=== PATIENT | male | born 1955 | race Caucasian/White ===

== ENCOUNTER 2019-11-19 09:54 | Emergency (ER) | payer BC ==
--- NOTE | 2019-11-19 12:51 | EDM.PDOC ---
ED HPI GENERAL MEDICAL PROBLEM - General Chief Complaint: Neurological Problem Stated Complaint: DIZZY, LIGHT HEADED Time Seen by Provider: 11/19/19 10:30 Source of Information: Reports: Patient, RN Notes Reviewed - History of Present Illness INITIAL COMMENTS - FREE TEXT/NARRATIVE: 64 year old male comes in after prolonged spell of severe lightheadedness yesterday about 24 hrs ago. He had been lying down working on a truck in a shop , when he did stand up he became severely lightheaded, felt like he was about to pass out. He states he was nauseated, diaphoretic, took him about an hr to recover, no chest pain or palpitations. Hx htn, on multiple meds for many yrs. Had a repeat epsiode this morning that was less severe. Did feel some palpitations with that. Now back to normal. - Related Data Allergies Allergy/AdvReac Type Severity Reaction Status Date / Time tamsulosin [From Flomax] Allergy Itching Verified 11/19/19 10:15 Home Meds: Home Meds Enalapril [Vasotec] 20 mg PO DAILY 11/19/19 [History] amLODIPine [Norvasc] 5 mg PO DAILY 11/19/19 [History] hydroCHLOROthiazide [Hydrochlorothiazide] 25 mg PO DAILY 11/19/19 [History] Past Medical History HEENT History: Reports: Impaired Vision Cardiovascular History: Reports: Hypertension Respiratory History: Reports: None Gastrointestinal History: Reports: Diverticulosis Genitourinary History: Reports: Renal Calculus Musculoskeletal History: Reports: None Neurological History: Reports: None Psychiatric History: Reports: None Endocrine/Metabolic History: Reports: None Hematologic History: Reports: None Immunologic History: Reports: None Oncologic (Cancer) History: Reports: None Dermatologic History: Reports: None - Infectious Disease History Infectious Disease History: Reports: None - Past Surgical History GI Surgical History: Reports: Other (See Below) Other GI Surgeries/Procedures: Pt had part of his intestine removed due to diverticulitis. Male Surgical History: Reports: Lithotripsy ([facility]), Renal Calculus Social & Family History - Tobacco Use Smoking Status *Q: Current Every Day Smoker Years of Tobacco use: 45 Packs/Tins Daily: 1 - Caffeine Use Caffeine Use: Reports: Coffee - Recreational Drug Use Recreational Drug Use: No ED ROS GENERAL - Review of Systems Review Of Systems: See Below Constitutional: Denies: Fever, Chills, Diaphoresis HEENT: Reports: No Symptoms Respiratory: Denies: Shortness of Breath, Pleuritic Chest Pain, Cough Cardiovascular: Reports: Palpitations. Denies: Chest Pain GI/Abdominal: Reports: Nausea. Denies: Abdominal Pain, Vomiting Musculoskeletal: Denies: Neck Pain, Shoulder Pain, Arm Pain Skin: Reports: No Symptoms Neurological: Denies: Numbness, Tingling, Trouble Speaking, Weakness ED EXAM, NEURO - Physical Exam Exam: See Below General Appearance: Alert, No Apparent Distress Eye Exam: Bilateral Eye: PERRL Throat/Mouth: Normal Inspection Head Exam: Atraumatic Neck: Supple Respiratory/Chest: No Respiratory Distress, Lungs Clear, Normal Breath Sounds Cardiovascular: Regular Rate, Rhythm GI/Abdominal: Soft, Non-Tender Neurological: Alert, No Motor/Sensory Deficits, Oriented x 3 Extremities: Normal Inspection, Normal Range of Motion Skin Exam: Warm, Dry, Normal Color EKG INTERPRETATION EKG Date: 11/19/19 Rhythm: NSR [place]: Normal P-Wave: Present QRS: Normal ST-T: Normal Course - Vital Signs Last Recorded V/S: Last Vital Signs Temp 98.3 F 11/19/19 10:09 Pulse 82 11/19/19 10:09 Resp 16 11/19/19 10:09 BP 155/82 H 11/19/19 10:09 Pulse Ox 97 11/19/19 10:09 - Orders/Labs/Meds Orders: Active Orders 24 hr Category Date Time Status EKG 12 Lead [EKG Documentation Completion] [RC] STAT Care 11/19/19 10:50 Active Holter Monitor 48 Hours [RC] .PRN Care 11/19/19 12:48 Active Labs: Laboratory Tests 11/19/19 11/19/19 Range/Units 11:02 11:02 WBC 6.51 (4.23-9.07) K/mm3 RBC 5.31 (4.63-6.08) M/mm3 Hgb 16.6 (13.7-17.5) gm/dl Hct 47.0 (40.1-51.0) % MCV 88.5 (79.0-92.2) fl MCH 31.3 (25.7-32.2) pg MCHC 35.3 (32.2-35.5) g/dl RDW Std Deviation 44.7 H (35.1-43.9) fL Plt Count 282 (163-337) K/mm3 MPV 9.4 (9.4-12.3) fl Neut % (Auto) 62.1 (34.0-67.9) % Lymph % (Auto) 22.3 (21.8-53.1) % [place] % (Auto) 13.5 H (5.3-12.2) % Eos % (Auto) 1.4 (0.8-7.0) Baso % (Auto) 0.5 (0.1-1.2) % Neut # (Auto) 4.05 (1.78-5.38) K/mm3 Lymph # (Auto) 1.45 (1.32-3.57) K/mm3 [place] # (Auto) 0.88 H (0.30-0.82) K/mm3 Eos # (Auto) 0.09 (0.04-0.54) K/mm3 Baso # (Auto) 0.03 (0.01-0.08) K/mm3 Sodium 136 (136-145) mEq/L Potassium 3.7 (3.5-5.1) mEq/L Chloride 99 (98-107) mEq/L Carbon Dioxide 29 (21-32) mEq/L Anion Gap 11.7 (5-15) BUN 19 H (7-18) mg/dL Creatinine 1.1 (0.7-1.3) mg/dL Est Cr Clr Drug Dosing 67.84 mL/min Estimated GFR (MDRD) > 60 (>60) mL/min BUN/Creatinine Ratio 17.3 (14-18) Glucose 106 (80-115) mg/dL Calcium 8.9 (8.5-10.1) mg/dL Total Bilirubin 0.3 (0.2-1.0) mg/dL AST 19 (15-37) U/L ALT 18 (16-63) U/L Alkaline Phosphatase 91 (46-116) U/L Total Protein 7.0 (6.4-8.2) g/dl Albumin 3.0 L (3.4-5.0) g/dl Globulin 4.0 gm/dL Albumin/Globulin Ratio 0.8 L (1-2) - Re-Assessments/Exams Free Text/Narrative Re-Assessment/Exam: 11/20/19 08:24 Labs, EKG nl, will send home with holter moniter. Patient does have strong history of hypertension on 3 meds. Sure has been fine here in the ED, not low. His been in sinus rhythm with no ectopy. He also does smoke and there is family history for coronary artery disease he does have multiple risk factors for all vascular disorders. Therefore we will also schedule him for carotid ultrasound outpatient. Patient is agreeable with that plan. Discharge instructions as documented Departure - Departure Time of Disposition: 12:49 Disposition: Home, Self-Care 01 Condition: Fair Clinical Impression: Near syncope, Palpitations - Discharge Information Instructions: Near-Syncope, [id number], Palpitations, [id number] Referrals: Charli Albright MD [Primary Care Provider] - Forms: ED Department Discharge Additional Instructions: 48 hour holter moniter. Carotid US. Radiology will give you a time for that. Continue current meds. Start a daily 81 mg aspirin for now. See Dr Choi in about 7 t0 10 days for results, further eval. treatment. Call for appt. today. Return to ED as needed if symptoms worsening in any way. Try hard to stop smoking. Sepsis Event Note - Evaluation Sepsis Screening Result: No Definite Risk - Focused Exam Date Exam was Performed: 11/20/19 Time Exam was Performed: 08:22 - My Orders Last 24 Hours: My Active Orders 11/19/19 10:50 EKG 12 Lead [EKG Documentation Completion] [RC] STAT 11/19/19 12:48 Holter Monitor 48 Hours [RC] .PRN - Assessment/Plan Last 24 Hours: My Active Orders 11/19/19 10:50 EKG 12 Lead [EKG Documentation Completion] [RC] STAT 11/19/19 12:48 Holter Monitor 48 Hours [RC] .PRN
== END 2019-11-19 13:30 | disposition home or self-care (01) ==
LOC: JD.ED 09:54
DX: R55 Syncope and collapse (principal); R00.2 Palpitations; I10 Essential (primary) hypertension; F17.210 Nicotine dependence, cigarettes, uncomplicated; Z88.8 Allergy status to other drugs, medicaments and biological substances; Z79.899 Other long term (current) drug therapy
CPT/HCPCS: 36415; 80053; 85025; 93005; 93010; 93225; 93226; 99283; 99284-25